=== PATIENT | female | born 1965 | race American Indian/Alaskan Native ===

== ENCOUNTER 2016-05-18 20:44 | Emergency (ER) | payer MEDICARE ==
--- NOTE | 2016-05-18 21:44 | Emergency Department Report ---
HPI - General Chief Complaint: Hyperglycemia Time Seen by Provider: 05/18/16 21:22 - HPI HPI: This is a 51-year-old -[place] female who presents to the emergency department with complaint of uncontrolled blood sugar in a insulin-dependent diabetic as well as some generalized abdominal discomfort with diarrhea. Patient says that the diarrhea and abdominal pain has been going over the past 2 -3 days. She also complains of a one-week history of a yeast infection with vaginal itching. The patient says she takes Levemir on a sliding scale but used to be on a insulin pump and is not sure whether she is dosing herself correctly. She denies any fever, nausea, vomiting, back pain, dysuria, vaginal bleeding, chest pain or shortness of breath. She does not currently have a primary care doctor. No recent travel or sick contacts at home. She is not taken anything for her symptoms prior to presentation. ED Past Medical Hx - Past Medical History Hx Hypertension: Yes Hx Diabetes: Yes Hx Renal Disease: Yes Hx Psychiatric Treatment: Yes (schizophrenia, Bipolar) Additional medical history: Neuropathy, Chronic Back Pain. - Surgical History Hx Cholecystectomy: Yes Hx Appendectomy: Yes Additional Surgical History: - Social History Smoking Status: Current Every Day Smoker Substance Use Type: None - Medications Home Medications: Home Medications Medication Instructions Recorded Confirmed Last Taken Type Abilify TAB 15 mg PO DAILY 01/18/16 01/18/16 Unknown History Gabapentin 300 mg PO DAILY 01/18/16 01/18/16 Unknown History Gabapentin [Neurontin] 600 mg PO Q8H 01/18/16 01/18/16 Unknown History Lisinopril 5 mg PO DAILY 01/18/16 01/18/16 Unknown History ED Review of Systems ROS: Stated complaint: HIGH BLOOD SUGAR Other details as noted in HPI Comment: All other systems reviewed and negative Constitutional: denies: chills, fever Eyes: denies: eye pain, eye discharge, vision change ENT: denies: ear pain, throat pain Respiratory: denies: cough, shortness of breath, wheezing Cardiovascular: denies: chest pain, palpitations Gastrointestinal: abdominal pain, diarrhea Genitourinary: denies: urgency, dysuria, discharge Musculoskeletal: denies: back pain, joint swelling, arthralgia Skin: denies: rash, lesions Neurological: denies: headache, weakness, paresthesias Physical Exam - Physical Exam Vital Signs: Vital Signs 05/18/16 20:52 Temperature 98 F Pulse Rate 63 Respiratory 16 Rate Blood Pressure 130/88 Blood Pressure 130/88 [Left] O2 Sat by Pulse 100 Oximetry Physical Exam: GENERAL: The patient is well-developed well-nourished. HEENT: Normocephalic. Atraumatic. Extraocular motions are intact. Patient has moist mucous membranes. Pupils equal reactive to light bilaterally. NECK: Supple. Trachea is midline. CHEST/LUNGS: Clear to auscultation. There is no respiratory distress noted. HEART/CARDIOVASCULAR: Regular. There is no tachycardia. There is no gallop rub or murmur. ABDOMEN: Abdomen is soft. Mild generalized tenderness to palpation of the abdomen. No guarding rebound tenderness. Patient has normal bowel sounds. There is no abdominal distention. SKIN: Skin is warm and dry. NEURO: The patient is awake, alert, and oriented. The patient is cooperative. The patient has no focal neurologic deficits. The patient has normal speech. MUSCULOSKELETAL: There is no tenderness or deformity. There is no limitation range of motion. There is no evidence of acute injury. ED Course Vital Signs 05/18/16 20:52 Temperature 98 F Pulse Rate 63 Respiratory 16 Rate Blood Pressure 130/88 Blood Pressure 130/88 [Left] O2 Sat by Pulse 100 Oximetry ED Medical Decision Making - Lab Data Result diagrams: 05/18/16 22:33 05/18/16 22:33 - Radiology Data Radiology results: report reviewed, image reviewed interpreted by me: Bowel x-ray shows some nonobstructive nonspecific bowel gas. CT of the abdomen and pelvis with IV contrast shows a enlarged liver measuring up to 22 cm but there is no mass. There is been a cholecystectomy. Mild dilatation of the bile ducts. There is calcification in the gallbladder fossa. There is a right adrenal mass measuring 3 cm that is somewhat complex in appearance. Neoplasm cannot be excluded. There is thickening of the stomach antrum suggesting possible gastritis. No obstruction. Large amount of stool and fluid and colon. No colonic wall thickening or obstruction. Nonvisualization of the appendix but no secondary evidence of appendicitis. There is no ascites, free air, abscess or adenopathy. - Medical Decision Making 51-year-old female presents with 2 complaints. First the patient has been having a 2-3 day history of some generalized abdominal discomfort. The other complaint is that she is having uncontrolled blood sugar. Patient's blood sugar was just about 400 which came in presentation. Patient had IV fluid resuscitation and some IV insulin. Her blood sugar came down to 270 and then most recently was at 61. Was at this point that the patient was given some food eat and her blood sugar will go back up to a more reasonable level. However there was no significant anion gap elevation. There was some mild acidosis but I do not believe that it is due to DKA. Patient has some mild tenderness to palpation of the abdomen but it is not a toxic or rigid abdomen. Abdominal x-ray shows no acute process. A CT was done that shows hepatomegaly and a right-sided adrenal mass. There is no visualization of the appendix but no secondary appendicitis symptoms on CT. The patient is feeling better and asking for something to eat. She will be discharged home to follow up with a primary care doctor and misdraw hand. She will return to the ER with any worsening of her symptoms or any acute distress. - Differential Diagnosis DKA, HHNK, colitis, cholecystitis, appendicitis, diverticulitis Critical Care Time: No Critical care attestation.: If time is entered above; I have spent that time in minutes in the direct care of this critically ill patient, excluding procedure time. ED Disposition Clinical Impression: Hepatomegaly, Adrenal mass, right, Hyperglycemia Abdominal pain Qualifiers: Abdominal location: generalized Qualified Code(s): R10.84 - Generalized abdominal pain Uncontrolled diabetes mellitus Qualifiers: Diabetes mellitus type: type 1 Diabetes mellitus complication status: with hyperglycemia Qualified Code(s): E10.65 - Type 1 diabetes mellitus with hyperglycemia Disposition: DISCHARGED TO HOME OR SELFCARE Is pt being admited?: No Condition: Stable Instructions: Diabetic Hyperglycemia (ED), Abdominal Pain (ED) Additional Instructions: Please follow-up with a primary care doctor in the next few days regarding your elevated blood sugar and how to better control her diabetes. I have also given you a referral for a local misdraw hand, Dr Priest, in order to follow-up regarding the CT findings of enlarged liver and adrenal mass. Return to the emergency department with any worsening of your symptoms or any acute distress. Referrals: JUNIOR CALDERON MD [Primary Care Provider] - 3-5 Days SHANTA PRIEST MD [Staff Physician] - 3-5 Days [facility] [Outside] - 3-5 Days [facility] [Outside] - 3-5 Days Time of Disposition: 01:50
[2016-05-18] MEDS ORDERED: NACL 0.9% 1000 ML 1,000 ML IV ONE (22:36)
[2016-05-18] MEDS ORDERED: MORPHINE IV ONE (22:36)
[2016-05-18 22:53] LABS: Eosinophils % (Auto) 2.4 % (0.0-4.3); Hematocrit 42.3 % (30.3-42.9); Hemoglobin 14.7 gm/dl (10.1-14.3); Mean Corpuscular HGB Conc 35 % (30-34); Mean Corpuscular Hemoglobin 31 pg (28-32); Mean Corpuscular Volume 89 fl (79-97); Platelet Count 231 K/mm3 (140-440); Red Blood Count 4.73 M/mm3 (3.65-5.03); White Blood Count 11.3 K/mm3 (4.5-11.0)
[2016-05-18 22:53] LABS: Bilirubin,Urine NEG (Negative); Blood,Urine NEG (Negative); Ketones,Urine NEG (Negative); Leukocyte Esterase,Urine LG (Negative); Nitrite,Urine NEG (Negative); Protein,Urine <15 mg/dL mg/dL (Negative); Urobilinogen,Urine < 2.0 mg/dL (<2.0); WBC,Urine < 1.0 /HPF (0.0-6.0)
[2016-05-18 23:06] LABS: Anion Gap 17 mmol/L; BUN/Creatinine Ratio 16.66; Blood Urea Nitrogen 10 mg/dL (7-17); Calcium 9.1 mg/dL (8.4-10.2); Carbon Dioxide 21 mmol/L (22-30); Chloride 99.2 mmol/L (98-107); Glucose 391 mg/dL (65-100); Potassium 3.7 mmol/L (3.6-5.0); Sodium 133 mmol/L (137-145)
[2016-05-18 23:09] LABS: Alanine Aminotransferase 31 units/L (7-56); Albumin 3.6 g/dL (3.9-5); Albumin/Globulin Ratio 0.9 %; Alkaline Phosphatase 157 units/L (35-129); Bilirubin,Direct < 0.2 mg/dL (0-0.2); Bilirubin,Total 0.2 mg/dL (0.1-1.2); Lipase 30 units/L (13-60); Total Protein 7.4 g/dL (6.3-8.2)
[2016-05-19] MEDS ORDERED: NACL ONE (00:08)
--- NOTE | 2016-05-19 00:21 | XRay Report ---
FINAL REPORT EXAM: XR ABDOMEN 2V HISTORY: abd pain COMPARISON: None available. FINDINGS: AP views of the abdomen obtained. Gas scattered within non dilated bowl loops. No gross pathologic calcifications. Bony structures are grossly intact. IMPRESSION: Nonobstructive bowel gas pattern.
--- NOTE | 2016-05-19 01:30 | Cat Scan Report ---
FINAL REPORT PROCEDURE: CT ABDOMEN PELVIS W CON TECHNIQUE: Computerized axial tomography of the abdomen and pelvis was performed after the IV injection of iodinated nonionic contrast. HISTORY: abd pain COMPARISON: No prior studies are available for comparison. FINDINGS: Visualized lower thorax: There is atelectasis at the lung bases. There is a tiny pericardial effusion.. Liver: Liver is enlarged measuring up to 22 centimeters. There is no mass.. Spleen: Normal size and attenuation. Gallbladder and biliary system: There has been a cholecystectomy. There is mild dilatation of the bile ducts. There is a calcification in the gallbladder fossa measuring 12 millimeters.. Pancreas: Normal. Adrenals: There is a right adrenal mass measuring 3 centimeters. This is somewhat complex in appearance. Neoplasm cannot be excluded.. Kidneys: Normal. GI tract: There is thickening of the stomach antrum suggesting possible gastritis. There is no obstruction. Small bowel loops are normal in caliber and thickness. There is a large amount of stool and fluid in the colon. There is no colonic wall thickening or obstruction. There is nonvisualization of the appendix. There is no secondary evidence of appendicitis.. Lymph nodes and mesentery: Normal. Vasculature: Normal. Bladder: Normal. Reproductive organs: Normal. Peritoneum: There is no ascites, free air, abscess or adenopathy.. Musculoskeletal structures: No significant abnormality. Other: None. IMPRESSION: Liver is enlarged measuring up to 22 centimeters. There is no mass.. There has been a cholecystectomy. There is mild dilatation of the bile ducts. There is a calcification in the gallbladder fossa measuring 12 millimeters.. There is a right adrenal mass measuring 3 centimeters. This is somewhat complex in appearance. Neoplasm cannot be excluded.. There is thickening of the stomach antrum suggesting possible gastritis. There is no obstruction. Small bowel loops are normal in caliber and thickness. There is a large amount of stool and fluid in the colon. There is no colonic wall thickening or obstruction. There is nonvisualization of the appendix. There is no secondary evidence of appendicitis.. There is no ascites, free air, abscess or adenopathy..
[2016-05-19 02:45] VITALS: BP 115/78
[2016-05-23 08:05] LABS: B-Hydroxybutyrate 0.1 mmol/L (0.2 - 0.28)
== END 2016-05-19 02:47 | disposition home or self-care (01) ==
LOC: ED 20:44
DX: E10.65 Type 1 diabetes mellitus with hyperglycemia (principal); R16.0 Hepatomegaly, not elsewhere classified; E27.8 Other specified disorders of adrenal gland; R10.84 Generalized abdominal pain; I10 Essential (primary) hypertension; F20.9 Schizophrenia, unspecified; F31.9 Bipolar disorder, unspecified; F17.200 Nicotine dependence, unspecified, uncomplicated
CPT/HCPCS: 36415; 74020; 74177; 80048; 80074; 81001; 82010; 82805; 82962; 83690; 84703; 85025; 96361; 96374; 96375; 99285; J2270; J7030; Q9967; J1815

== ENCOUNTER 2016-05-21 13:08 | Emergency (ER) | payer MEDICARE ==
[2016-05-21 13:40] LABS: Urine Drugs of Abuse Note Disclamer
[2016-05-21 14:02] LABS: Bacteria,Urine 1+ /HPF (Negative); Bilirubin,Urine NEG (Negative); Blood,Urine NEG (Negative); Ketones,Urine NEG (Negative); Leukocyte Esterase,Urine NEG (Negative); Mucus,Urine FEW /HPF; Nitrite,Urine POS (Negative); Protein,Urine <15 mg/dL mg/dL (Negative); Urobilinogen,Urine < 2.0 mg/dL (<2.0)
[2016-05-21 14:18] LABS: Anion Gap 17 mmol/L; BUN/Creatinine Ratio 8.33; Blood Urea Nitrogen 5 mg/dL (7-17); Calcium 8.6 mg/dL (8.4-10.2); Carbon Dioxide 21 mmol/L (22-30); Chloride 99.9 mmol/L (98-107); Glucose 480 mg/dL (65-100); Potassium 3.1 mmol/L (3.6-5.0); Sodium 135 mmol/L (137-145)
[2016-05-21 14:32] LABS: Basophils % (Auto) 0.9 % (0.0-1.8); Eosinophils % (Auto) 1.8 % (0.0-4.3); Hemoglobin 13.4 gm/dl (10.1-14.3); Mean Corpuscular HGB Conc 34 % (30-34); Mean Corpuscular Hemoglobin 30 pg (28-32); Mean Corpuscular Volume 91 fl (79-97); Platelet Count 229 K/mm3 (140-440); Red Cell Distribution Width 13.4 % (13.2-15.2); White Blood Count 10.9 K/mm3 (4.5-11.0)
[2016-05-21] MEDS ORDERED: NACL 0.9% 1000 ML 1,000 ML IV ONE (23:05)
--- NOTE | 2016-05-21 23:43 | Emergency Department Report ---
ED Abdominal Pain HPI - General Chief Complaint: Psych Stated Complaint: MH EVAL/BLOOD SUGAR HIGH Time Seen by Provider: 05/21/16 22:51 Source: patient Mode of arrival: Ambulatory Limitations: Physical Limitation - History of Present Illness Initial Comments: Patient is a 51-year-old female with a history of diabetes, depression, and bipolar d/o who presents to the ER today for mild diffuse abdominal pain and diarrhea 1 week. It was noted in triage that patient was here for mental health evaluation and homicidal ideation with hearing of voices however patient reports that she was joking around with the nurse and is not suicidal, does not have any hallucinations, delusions or homicidal ideations. Patient does report she did run out of her Abilify and Vistaril prescription at this time Severity scale (0 -10): 3 - Related Data Home Medications Medication Instructions Recorded Confirmed Last Taken Gabapentin [Neurontin] 600 mg PO Q8H 01/18/16 05/22/16 Unknown Lisinopril 5 mg PO DAILY 01/18/16 05/22/16 Unknown Previous Rx's Medication Instructions Recorded Last Taken Type Abilify TAB 15 mg PO DAILY #14 05/22/16 Unknown Rx hydrOXYzine PAMOATE [Vistaril] 25 mg PO QHS #14 capsule 05/22/16 Unknown Rx Allergies Allergy/AdvReac Type Severity Reaction Status Date / Time Penicillins Allergy Swelling Verified 05/21/16 13:14 Tomatos Allergy Swelling Uncoded 05/21/16 13:14 ED Review of Systems ROS: Stated complaint: MH EVAL/BLOOD SUGAR HIGH Other details as noted in HPI Comment: All other systems reviewed and negative Constitutional: no symptoms reported Eyes: as per HPI ENT: as per HPI Respiratory: no symptoms reported Cardiovascular: as per HPI Endocrine: no symptoms reported Gastrointestinal: as per HPI Genitourinary: as per HPI Musculoskeletal: as per HPI Skin: as per HPI Neurological: as per HPI Psychiatric: as per HPI Hematological/Lymphatic: as per HPI ED Past Medical Hx - Past Medical History Hx Hypertension: Yes Hx Diabetes: Yes Hx Renal Disease: Yes Hx Psychiatric Treatment: Yes (schizophrenia, Bipolar) Additional medical history: Neuropathy, Chronic Back Pain. - Surgical History Hx Cholecystectomy: Yes Hx Appendectomy: Yes Additional Surgical History: - Social History Smoking Status: Current Every Day Smoker Substance Use Type: Prescribed - Medications Home Medications: Home Medications Medication Instructions Recorded Confirmed Last Taken Type Gabapentin [Neurontin] 600 mg PO Q8H 01/18/16 05/22/16 Unknown History Lisinopril 5 mg PO DAILY 01/18/16 05/22/16 Unknown History Abilify TAB 15 mg PO DAILY #14 05/22/16 Unknown Rx hydrOXYzine PAMOATE [Vistaril] 25 mg PO QHS #14 capsule 05/22/16 Unknown Rx ED Physical Exam - General Limitations: Physical Limitation General appearance: alert, in no apparent distress - Head Head exam: Present: atraumatic, normocephalic - Eye Eye exam: Present: normal appearance - Neck Neck exam: Present: normal inspection - Respiratory Respiratory exam: Present: normal lung sounds bilaterally. Absent: respiratory distress - Cardiovascular Cardiovascular Exam: Present: regular rate, normal rhythm, normal heart sounds. Absent: systolic murmur - GI/Abdominal GI/Abdominal exam: Present: soft, tenderness (mild diffuse), hyperactive bowel sounds. Absent: distended, guarding, rebound, rigid - Neurological Exam Neurological exam: Present: alert, oriented X3, CN II-XII intact, normal gait. Absent: motor sensory deficit - Psychiatric Psychiatric exam: Present: normal affect, normal mood. Absent: depressed, flat affect, homicidal ideation, suicidal ideation - Skin Skin exam: Present: warm, dry, intact ED Course Vital Signs 05/21/16 05/21/16 05/21/16 13:18 22:11 22:45 Temperature 98.4 F 98.3 F Pulse Rate 81 73 Respiratory 20 18 12 Rate Blood Pressure 131/93 179/88 Blood Pressure [Right] O2 Sat by Pulse 100 99 98 Oximetry 05/21/16 05/22/16 22:48 02:04 Temperature 98.0 F 98.5 F Pulse Rate 84 70 Respiratory 12 12 Rate Blood Pressure Blood Pressure 129/56 128/78 [Right] O2 Sat by Pulse 98 98 Oximetry ED Medical Decision Making - Lab Data Result diagrams: 05/21/16 13:47 05/21/16 23:19 - Medical Decision Making Patient given 1 L normal saline bolus. Repeat fingerstick in the 500s. Second liter normal saline bolus started, 8 units of regular insulin IV push given. Patient was also repleted with potassium chloride 40 mEq 1 tablet Labs re-reviewed patient is not in DKA. Repeat fingerstick after second liter bolus and 8 units of insulin is 125 Critical care attestation.: If time is entered above; I have spent that time in minutes in the direct care of this critically ill patient, excluding procedure time. ED Disposition Clinical Impression: Gastroenteritis, Dehydration, Hyperglycemia Disposition: DISCHARGED TO HOME OR SELFCARE Is pt being admited?: No Does the pt Need Aspirin: No Condition: Stable Instructions: Gastroenteritis (ED), Dehydration (ED), Diabetic Hyperglycemia ( ED) Prescriptions: hydrOXYzine PAMOATE [Vistaril] 25 mg PO QHS #14 capsule Abilify TAB 15 mg PO DAILY #14 Referrals: PRIMARY CARE, [Primary Care Provider] - 3-5 Days
[2016-05-22] LABS: Alanine Aminotransferase 89 units/L (7-56); Albumin 3.2 g/dL (3.9-5); Albumin/Globulin Ratio 0.9 %; Alkaline Phosphatase 187 units/L (35-129); Anion Gap 13 mmol/L; BUN/Creatinine Ratio 6.66; Bilirubin,Total 0.3 mg/dL (0.1-1.2); Blood Urea Nitrogen 4 mg/dL (7-17); Calcium 8.3 mg/dL (8.4-10.2); Carbon Dioxide 24 mmol/L (22-30); Chloride 101.2 mmol/L (98-107); Lipase 23 units/L (13-60); Potassium 3.1 mmol/L (3.6-5.0); Sodium 135 mmol/L (137-145); Total Protein 6.7 g/dL (6.3-8.2)
[2016-05-22] MEDS ORDERED: K-DUR PO ONE (00:30)
[2016-05-22] MEDS ORDERED: NACL 0.9% 1000 ML 1,000 ML IV ONE (00:30)
[2016-05-22 00:44] LABS: Bilirubin,Direct < 0.2 mg/dL (0-0.2); Bilirubin,Indirect 0.1 mg/dL
[2016-05-22 00:46] LABS: Glucose 521 mg/dL (65-100)
[2016-05-22 02:52] VITALS: BP 128/79
--- NOTE | 2016-05-22 09:49 | XRay Report ---
ABDOMINAL SERIES: History: Abdominal pain. Supine and upright views of the abdomen and frontal view of the chest are submitted. There is gas mixed with moderate stool throughout the colon. There are no dilated loops of bowel or air-fluid levels. There is no free intraperitoneal gas. The lungs are clear. Cholecystectomy changes are noted. IMPRESSION: Fecal retention.
== END 2016-05-22 02:30 | disposition home or self-care (01) ==
LOC: EEVIPCON 13:08 → ED 13:08
DX: K52.9 Noninfective gastroenteritis and colitis, unspecified (principal); E86.0 Dehydration; E11.65 Type 2 diabetes mellitus with hyperglycemia; I10 Essential (primary) hypertension; F31.9 Bipolar disorder, unspecified; F20.9 Schizophrenia, unspecified
CPT/HCPCS: 36415; 74022; 80048; 80074; 80307; 81001; 81025; 82962; 83690; 85025; 96361; 96374; 99284; G0480; J7030; 80320; J1815

== ENCOUNTER 2016-07-16 12:14 | Emergency (ER) | payer MEDICARE ==
[2016-07-16 13:19] LABS: Basophils % (Auto) 0.4 % (0.0-1.8); Eosinophils % (Auto) 1.3 % (0.0-4.3); Hematocrit 35.7 % (30.3-42.9); Hemoglobin 12.1 gm/dl (10.1-14.3); Mean Corpuscular HGB Conc 34 % (30-34); Mean Corpuscular Hemoglobin 33 pg (28-32); Mean Corpuscular Volume 96 fl (79-97); Platelet Count 289 K/mm3 (140-440); Red Blood Count 3.71 M/mm3 (3.65-5.03); Red Cell Distribution Width 14.5 % (13.2-15.2); White Blood Count 9.8 K/mm3 (4.5-11.0)
[2016-07-16 13:44] LABS: Anion Gap 16 mmol/L; BUN/Creatinine Ratio 21.11; Blood Urea Nitrogen 19 mg/dL (7-17); Calcium 8.7 mg/dL (8.4-10.2); Carbon Dioxide 28 mmol/L (22-30); Chloride 100.9 mmol/L (98-107); Glucose 97 mg/dL (65-100); Potassium 4.4 mmol/L (3.6-5.0); Sodium 140 mmol/L (137-145)
[2016-07-16 13:56] VITALS: BP 123/45
[2016-07-16 14:15] LABS: Bilirubin,Urine NEG (Negative); Blood,Urine NEG (Negative); Ketones,Urine NEG (Negative); Leukocyte Esterase,Urine NEG (Negative); Nitrite,Urine NEG (Negative); Protein,Urine <15 mg/dL mg/dL (Negative); Urobilinogen,Urine < 2.0 mg/dL (<2.0)
[2016-07-16 14:26] LABS: Albumin 3.4 g/dL (3.9-5); Bilirubin,Direct 0.2 mg/dL (0-0.2); Bilirubin,Indirect 0.1 mg/dL; Bilirubin,Total 0.3 mg/dL (0.1-1.2); Magnesium 2.2 mg/dL (1.7-2.3); Total Protein 6.7 g/dL (6.3-8.2)
[2016-07-16 14:27] LABS: INR 0.93 (0.87-1.13)
[2016-07-16 14:28] LABS: Partial Thromboplastin Time 26.9 Sec. (24.2-36.6)
--- NOTE | 2016-07-16 15:00 | Emergency Department Report ---
ED General Adult HPI - General Chief complaint: Hypoglycemia Stated complaint: HYPOGLYCENIC Time Seen by Provider: 07/16/16 12:52 Source: patient Mode of arrival: Stretcher Limitations: No Limitations - History of Present Illness Initial comments: The patient is currently in the [facility]. She states that she is being treated for schizophrenia and bipolar disorder. As far as I can tell she is in a [place] [facility]. Patient cannot identify a reason why she is specifically in the [facility] other than her mental health history. The patient apparently became hypoglycemic today. She was found by EMS to have a fasting blood sugar of 41. She was treated with oral glucose successfully. She presented to the emergency department awake and was able to eat. Patient claims that she checks her sugar 8 times a day. When asked how she could be hypoglycemic like this so late in the day she offers no explanation/ states she does not know. She has a number of complaints in addition now. She states that she just doesn't feel "right". He states that she is currently hungry. She is not hallucinating nor agitated nor depressed. She has had some recent surgical procedure for corns and has been placed on an antibiotic she states by her mouse breeder. She also states that she was placed on Lasix for swollen feet by her primary care physician. She does not report dyspnea. -: hour(s) Improves with: none Worsens with: none Associated Symptoms: denies other symptoms - Related Data Home Medications Medication Instructions Recorded Confirmed Last Taken Furosemide [Lasix TAB] 40 mg PO QDAY 07/16/16 07/16/16 Unknown Insulin Aspart [Novolog Flexpen] 30 unit SQ QID 07/16/16 07/16/16 Unknown Insulin Glargine,Hum.rec.anlog 10 units SQ QPM 07/16/16 07/16/16 Unknown [Lantus Solostar] Potassium Chloride [Klor-Con 10] 10 meq PO DAILY 07/16/16 07/16/16 Unknown QUEtiapine [SEROquel] 200 mg PO QPM 07/16/16 07/16/16 Unknown cloNIDine [Catapres] 0.1 mg PO QPM 07/16/16 07/16/16 Unknown metroNIDAZOLE [Flagyl] 500 mg PO Q8HR 07/16/16 07/16/16 Unknown traZODone [Desyrel] 50 mg PO QHS 07/16/16 07/16/16 Unknown Allergies Allergy/AdvReac Type Severity Reaction Status Date / Time Penicillins Allergy Swelling Verified 05/21/16 13:14 [place] Allergy Swelling Uncoded 05/21/16 13:14 ED Review of Systems ROS: Stated complaint: HYPOGLYCENIC Other details as noted in HPI Constitutional: denies: chills, fever Eyes: denies: eye pain, eye discharge, vision change ENT: denies: ear pain, throat pain Respiratory: denies: cough, shortness of breath, wheezing Cardiovascular: denies: chest pain, palpitations Endocrine: no symptoms reported Gastrointestinal: denies: abdominal pain, nausea, diarrhea Genitourinary: denies: urgency, dysuria, discharge Musculoskeletal: as per HPI (swollen feet). denies: back pain, joint swelling, arthralgia Skin: denies: rash, lesions Neurological: denies: headache, weakness, paresthesias Psychiatric: denies: anxiety, depression Hematological/Lymphatic: denies: easy bleeding, easy bruising ED Past Medical Hx - Past Medical History Hx Hypertension: Yes Hx Congestive Heart Failure: No Hx Diabetes: Yes Hx Renal Disease: Yes Hx Psychiatric Treatment: Yes (schizophrenia, Bipolar) Hx Asthma: No Hx COPD: No Hx HIV: No Additional medical history: Neuropathy, Chronic Back Pain. - Surgical History Hx Cholecystectomy: Yes Hx Appendectomy: Yes Additional Surgical History: - Social History Smoking Status: Current Every Day Smoker Substance Use Type: Alcohol - Medications Home Medications: Home Medications Medication Instructions Recorded Confirmed Last Taken Type Furosemide [Lasix TAB] 40 mg PO QDAY 07/16/16 07/16/16 Unknown History Insulin Aspart [Novolog Flexpen] 30 unit SQ QID 07/16/16 07/16/16 Unknown History Insulin Glargine,Hum.rec.anlog 10 units SQ QPM 07/16/16 07/16/16 Unknown History [Lantus Solostar] Potassium Chloride [Klor-Con 10] 10 meq PO DAILY 07/16/16 07/16/16 Unknown History QUEtiapine [SEROquel] 200 mg PO QPM 07/16/16 07/16/16 Unknown History cloNIDine [Catapres] 0.1 mg PO QPM 07/16/16 07/16/16 Unknown History metroNIDAZOLE [Flagyl] 500 mg PO Q8HR 07/16/16 07/16/16 Unknown History traZODone [Desyrel] 50 mg PO QHS 07/16/16 07/16/16 Unknown History ED Physical Exam - General Limitations: No Limitations General appearance: alert, in no apparent distress - Head Head exam: Present: atraumatic, normocephalic - Eye Eye exam: Present: normal appearance, PERRL, EOMI. Absent: scleral icterus - ENT ENT exam: Present: normal exam, mucous membranes moist - Neck Neck exam: Present: normal inspection. Absent: tenderness, meningismus - Respiratory Respiratory exam: Present: normal lung sounds bilaterally. Absent: respiratory distress - Cardiovascular Cardiovascular Exam: Present: regular rate, normal rhythm. Absent: systolic murmur, diastolic murmur, rubs, gallop - GI/Abdominal GI/Abdominal exam: Present: soft, normal bowel sounds. Absent: distended, tenderness, guarding, rebound, rigid - Extremities Exam Extremities exam: Present: other (dressed sites plantar aspect both feet. One to 2+ pedal edema) - Back Exam Back exam: Present: normal inspection - Neurological Exam Neurological exam: Present: alert, oriented X3, CN II-XII intact (.). Absent: motor sensory deficit - Psychiatric Psychiatric exam: Present: normal mood, flat affect - Skin Skin exam: Present: warm, dry, normal color, other (no signs of cellulitis or lymphangitis of the feet.). Absent: rash ED Course Vital Signs 07/16/16 07/16/16 07/16/16 12:27 12:39 13:31 Temperature 97.4 F L 97.5 F L Pulse Rate 92 H 80 Respiratory 18 16 16 Rate Blood Pressure 110/70 Blood Pressure 113/67 [Left] O2 Sat by Pulse 99 97 97 Oximetry 07/16/16 13:55 Temperature Pulse Rate 92 H Respiratory 16 Rate Blood Pressure Blood Pressure 123/45 [Left] O2 Sat by Pulse 96 Oximetry - Reevaluation(s) Reevaluation #1: Patient tolerated oral diet well. I did not find any other indication of metabolic disturbance or congestive heart failure. She is appropriate for outpatient follow-up. 07/16/16 15:16 ED Medical Decision Making - Lab Data Result diagrams: 07/16/16 12:51 07/16/16 12:51 Laboratory Results - last 24 hr 06/04/2907/16/16 07/16/16 12:19 12:39 12:51 WBC 9.8 RBC 3.71 Hgb 12.1 Hct 35.7 MCV 96 MCH 33 H MCHC 34 RDW 14.5 Plt Count 289 Lymph % (Auto) 24.0 [place] % (Auto) 6.6 Eos % (Auto) 1.3 Baso % (Auto) 0.4 Lymph # 2.3 [place] # 0.6 Eos # 0.1 Baso # 0.0 Seg Neutrophils % 67.7 Seg Neutrophils # 6.6 PT INR APTT Sodium Potassium Chloride Carbon Dioxide Anion Gap BUN Creatinine Estimated GFR BUN/Creatinine Ratio Glucose POC Glucose 97 Calcium Magnesium Total Bilirubin Direct Bilirubin Indirect Bilirubin AST ALT Alkaline Phosphatase NT-Pro-B Natriuret Pep Total Protein Albumin Albumin/Globulin Ratio Urine Color Yellow Urine Turbidity Clear Urine pH 6.0 Ur Specific [place] 1.011 Urine Protein <15 mg/dl Urine Glucose (UA) Neg Urine Ketones Neg Urine Blood Neg Urine Nitrite Neg Urine Bilirubin Neg Urine Urobilinogen < 2.0 Ur Leukocyte Esterase Neg Urine WBC (Auto) 1.0 Urine RBC (Auto) 1.0 U Epithel Cells (Auto) 5.0 Amorphous Crystals Few Urine HCG, Qual Negative Plasma/Serum Alcohol 07/16/16 07/16/16 07/16/16 12:51 12:51 13:16 WBC RBC Hgb Hct MCV MCH MCHC RDW Plt Count Lymph % (Auto) [place] % (Auto) Eos % (Auto) Baso % (Auto) Lymph # [place] # Eos # Baso # Seg Neutrophils % Seg Neutrophils # PT INR APTT Sodium 140 Potassium 4.4 Chloride 100.9 Carbon Dioxide 28 Anion Gap 16 BUN 19 H Creatinine 0.9 Estimated GFR > 60 BUN/Creatinine Ratio 21.11 Glucose 97 POC Glucose 152 H Calcium 8.7 Magnesium Total Bilirubin Direct Bilirubin Indirect Bilirubin AST ALT Alkaline Phosphatase NT-Pro-B Natriuret Pep Total Protein Albumin Albumin/Globulin Ratio Urine Color Urine Turbidity Urine pH Ur Specific [place] Urine Protein Urine Glucose (UA) Urine Ketones Urine Blood Urine Nitrite Urine Bilirubin Urine Urobilinogen Ur Leukocyte Esterase Urine WBC (Auto) Urine RBC (Auto) U Epithel Cells (Auto) Amorphous Crystals Urine HCG, Qual Plasma/Serum Alcohol < 0.01 07/16/16 07/16/16 13:50 13:50 WBC RBC Hgb Hct MCV MCH MCHC RDW Plt Count Lymph % (Auto) [place] % (Auto) Eos % (Auto) Baso % (Auto) Lymph # [place] # Eos # Baso # Seg Neutrophils % Seg Neutrophils # PT 12.4 INR 0.93 APTT 26.9 Sodium Potassium Chloride Carbon Dioxide Anion Gap BUN Creatinine Estimated GFR BUN/Creatinine Ratio Glucose POC Glucose Calcium Magnesium 2.20 Total Bilirubin 0.30 Direct Bilirubin 0.2 Indirect Bilirubin 0.1 AST 14 ALT 18 Alkaline Phosphatase 100 NT-Pro-B Natriuret Pep 129.7 Total Protein 6.7 Albumin 3.4 L Albumin/Globulin Ratio 1.0 Urine Color Urine Turbidity Urine pH Ur Specific [place] Urine Protein Urine Glucose (UA) Urine Ketones Urine Blood Urine Nitrite Urine Bilirubin Urine Urobilinogen Ur Leukocyte Esterase Urine WBC (Auto) Urine RBC (Auto) U Epithel Cells (Auto) Amorphous Crystals Urine HCG, Qual Plasma/Serum Alcohol Laboratory Results - last 24 hr 07/16/16 07/16/16 07/16/16 12:19 12:39 12:51 WBC 9.8 RBC 3.71 Hgb 12.1 Hct 35.7 MCV 96 MCH 33 H MCHC 34 RDW 14.5 Plt Count 289 Lymph % (Auto) 24.0 [place] % (Auto) 6.6 Eos % (Auto) 1.3 Baso % (Auto) 0.4 Lymph # 2.3 [place] # 0.6 Eos # 0.1 Baso # 0.0 Seg Neutrophils % 67.7 Seg Neutrophils # 6.6 PT INR APTT Sodium Potassium Chloride Carbon Dioxide Anion Gap BUN Creatinine Estimated GFR BUN/Creatinine Ratio Glucose POC Glucose 97 Calcium Magnesium Total Bilirubin Direct Bilirubin Indirect Bilirubin AST ALT Alkaline Phosphatase NT-Pro-B Natriuret Pep Total Protein Albumin Albumin/Globulin Ratio Urine Color Yellow Urine Turbidity Clear Urine pH 6.0 Ur Specific [place] 1.011 Urine Protein <15 mg/dl Urine Glucose (UA) Neg Urine Ketones Neg Urine Blood Neg Urine Nitrite Neg Urine Bilirubin Neg Urine Urobilinogen < 2.0 Ur Leukocyte Esterase Neg Urine WBC (Auto) 1.0 Urine RBC (Auto) 1.0 U Epithel Cells (Auto) 5.0 Amorphous Crystals Few Urine HCG, Qual Negative Plasma/Serum Alcohol 07/16/16 07/16/16 07/16/16 12:51 12:51 13:16 WBC RBC Hgb Hct MCV MCH MCHC RDW Plt Count Lymph % (Auto) [place] % (Auto) Eos % (Auto) Baso % (Auto) Lymph # [place] # Eos # Baso # Seg Neutrophils % Seg Neutrophils # PT INR APTT Sodium 140 Potassium 4.4 Chloride 100.9 Carbon Dioxide 28 Anion Gap 16 BUN 19 H Creatinine 0.9 Estimated GFR > 60 BUN/Creatinine Ratio 21.11 Glucose 97 POC Glucose 152 H Calcium 8.7 Magnesium Total Bilirubin Direct Bilirubin Indirect Bilirubin AST ALT Alkaline Phosphatase NT-Pro-B Natriuret Pep Total Protein Albumin Albumin/Globulin Ratio Urine Color Urine Turbidity Urine pH Ur Specific [place] Urine Protein Urine Glucose (UA) Urine Ketones Urine Blood Urine Nitrite Urine Bilirubin Urine Urobilinogen Ur Leukocyte Esterase Urine WBC (Auto) Urine RBC (Auto) U Epithel Cells (Auto) Amorphous Crystals Urine HCG, Qual Plasma/Serum Alcohol < 0.01 07/16/16 07/16/16 13:50 13:50 WBC RBC Hgb Hct MCV MCH MCHC RDW Plt Count Lymph % (Auto) [place] % (Auto) Eos % (Auto) Baso % (Auto) Lymph # [place] # Eos # Baso # Seg Neutrophils % Seg Neutrophils # PT 12.4 INR 0.93 APTT 26.9 Sodium Potassium Chloride Carbon Dioxide Anion Gap BUN Creatinine Estimated GFR BUN/Creatinine Ratio Glucose POC Glucose Calcium Magnesium 2.20 Total Bilirubin 0.30 Direct Bilirubin 0.2 Indirect Bilirubin 0.1 AST 14 ALT 18 Alkaline Phosphatase 100 NT-Pro-B Natriuret Pep 129.7 Total Protein 6.7 Albumin 3.4 L Albumin/Globulin Ratio 1.0 Urine Color Urine Turbidity Urine pH Ur Specific [place] Urine Protein Urine Glucose (UA) Urine Ketones Urine Blood Urine Nitrite Urine Bilirubin Urine Urobilinogen Ur Leukocyte Esterase Urine WBC (Auto) Urine RBC (Auto) U Epithel Cells (Auto) Amorphous Crystals Urine HCG, Qual Plasma/Serum Alcohol Critical care attestation.: If time is entered above; I have spent that time in minutes in the direct care of this critically ill patient, excluding procedure time. ED Disposition Clinical Impression: Hypoglycemia, Pedal edema Schizophrenia Qualifiers: Schizophrenia type: unspecified Qualified Code(s): F20.9 - Schizophrenia, unspecified Disposition: DISCHARGED TO HOME OR SELFCARE Is pt being admited?: No Does the pt Need Aspirin: No Condition: Stable Instructions: Diabetic Hypoglycemia (ED), Leg Edema (ED) Additional Instructions: I would recommend leg elevation for your swollen feet. Check your sugar frequently. Adjust insulin dosing appropriately. Follow-up with her primary care provider. Return any acute change or problem. Referrals: PRIMARY CARE, [Primary Care Provider] - 3-5 Days Time of Disposition: 15:19
--- NOTE | 2016-07-17 09:11 | XRay Report ---
Single view chest: History: Hypertension. Findings: Cardiomegaly. Trachea is midline. Mild pulmonary venous congestion. No consolidation or pleural effusion. Impression: Cardiomegaly with mild pulmonary venous congestion.
== END 2016-07-16 16:00 | disposition home or self-care (01) ==
LOC: ED 12:14
DX: E11.649 Type 2 diabetes mellitus with hypoglycemia without coma (principal); F20.9 Schizophrenia, unspecified; R60.0 Localized edema; I10 Essential (primary) hypertension; E11.9 Type 2 diabetes mellitus without complications; N28.9 Disorder of kidney and ureter, unspecified; F31.9 Bipolar disorder, unspecified; G89.29 Other chronic pain; Z88.0 Allergy status to penicillin; Z91.018 Allergy to other foods; F17.200 Nicotine dependence, unspecified, uncomplicated
CPT/HCPCS: 36415; 71010; 80048; 80074; 81001; 81025; 82962; 83735; 83880; 85025; 85610; 85730; 99284; G0480; 80320